=== PATIENT | female | born 1980 | race Caucasian/White ===

== ENCOUNTER 2018-02-19 11:30 | Inpatient (IN) | payer OTHER ==
[2018-02-21] MEDS ORDERED: LACTATED RINGERS 1,000 ML ONE (23:47)
[2018-02-22] MEDS ORDERED: SUBLIMAZE IV PRN (01:10)
[2018-02-22] MEDS ORDERED: POLYCILLIN/NS 2 GM/100 ML 2 GM/100 ML BAG IV ONE (01:10)
[2018-02-22] MEDS ORDERED: BRETHINE SUB-Q PRN (01:10)
[2018-02-22] MEDS ORDERED: XYLOCAINE 2% INFILTRATI ONE (01:10)
[2018-02-22 01:39] LABS: Basophils # (Auto) 0.1 K/mm3 (0.0-0.1); Basophils % (Auto) 0.8 % (0.0-1.8); Eosinophils # (Auto) 0.7 K/mm3 (0.0-0.4); Eosinophils % (Auto) 8.3 % (0.0-4.3); Hematocrit 37.6 % (30.3-42.9); Hemoglobin 12.7 gm/dl (10.1-14.3); Lymphocytes # (Auto) 1.8 K/mm3 (1.2-5.4); Mean Corpuscular HGB Conc 34 % (30-34); Mean Corpuscular Hemoglobin 31 pg (28-32); Mean Corpuscular Volume 93 fl (79-97); Monocytes # (Auto) 0.9 K/mm3 (0.0-0.8); Monocytes % (Auto) 10.4 % (0.0-7.3); Platelet Count 155 K/mm3 (140-440); Red Blood Count 4.05 M/mm3 (3.65-5.03)
--- NOTE | 2018-02-22 01:46 | History and Physical Report ---
History of Present Illness Date of examination: 02/21/18 Date of admission: 02/21/18 21:24 Chief complaint: Patient presents to L&D for induction of labor. History of present illness: 37 year old presents to L&D for induction of labor due to gestational diabetes. Patient has received care at [facility] clinic and she brings a copy of her records with her. LMP 05/22/17. EDC 02/26/18. EGA 39 weeks, 3 days gestation. significant for gestational diabetes (diet controlled), epilepsy ( managed with Lamictal 100 mg po BID, last seizure 2011), AMA (patient declined perinatology consult), fibroid, Rh negative (patient received Rhogam). labs are as follows: A-, antibody screen negative, rubella immune, RPR nonreactive, urine C&S negative, hepatitis B surface antigen negative, HIV negative, chlamydia negative, gonorrhea negative, quad screen negative, 1 hour sugar test 145, 3 hour OGTT 75/162/164/152, GBS positive. Past History Past Medical History: seizure Past Surgical History: other (nasal septum repair 2011) [employer] History: fibroids. denies: abnormal PAP smear, chlamydia, gonorrhea, hepatitis B, hepatitis C, herpes, HIV, syphilis Family/Genetic History: none Social history: , lives with family, full code. denies: smoking, alcohol abuse, prescription drug abuse, IV drug use - Obstetrical History Expected Date of Delivery: 02/26/18 Actual Gestation: 39 Week(s) 3 Day(s) : 4 Para: 2 Hx # Term Pregnancies: 3 Number of Pregnancies: 0 Spontaneous Abortions: 1 Induced : 0 Medications and Allergies Allergies Allergy/AdvReac Type Severity Reaction Status Date / Time No Known Allergies Allergy Verified 02/21/18 22:36 Home Medications Medication Instructions Recorded Confirmed Last Taken Type Vit-Fe Fumar-FA [ 1 tab PO QDAY 02/22/18 02/22/18 1 Day Ago History Vitamin] ~02/21/18 1 tablet lamoTRIgine [LaMICtal] 100 mg PO BID 02/22/18 02/22/18 1 Day Ago History ~02/21/18 100 mg Active Meds: Active Medications Ephedrine Sulfate (Ephedrine Sulfate) 10 mg IV Q2M PRN PRN Reason: Hypotension Fentanyl (Sublimaze) 100 mcg IV Q2H PRN PRN Reason: Labor Pain Ampicillin Sodium (Polycillin/Ns 2 Gm/100 Ml) 2 gm in 100 mls @ 100 mls/hr IV ONCE ONE; Protocol Stop: 02/22/18 02:09 Lactated Ringer's (Lactated Ringers) 1,000 mls @ 125 mls/hr IV DIRECT MARIE Oxytocin/Sodium Chloride (Pitocin/Ns 20 Unit/1000ml Drip) 20 units in 1,000 mls @ 125 mls/hr IV DIRECT MARIE Oxytocin/Sodium Chloride (Pitocin/Ns 30 Unit/500ml) 30 units in 500 mls @ 1 mls /hr IV TITR MARIE; Protocol Ampicillin Sodium (Ampicillin/Ns 1 Gm/50 Ml) 1 gm in 50 mls @ 100 mls/hr IV Q4HR MARIE; Protocol Terbutaline Sulfate (Brethine) 0.25 mg SUB-Q ONCE PRN PRN Reason: Hyperstimulation/Hypertonicity Review of Systems All systems: negative (occasional contraction) - Vital Signs Vital signs: Vital Signs Pulse BP 67 166/83 02/21/18 22:44 02/21/18 22:44 Temp Pulse Resp BP Pulse Ox 98.3 F 68 18 135/84 02/21/18 23:08 02/22/18 01:43 02/21/18 23:08 02/22/18 01:43 - Physical Exam Cardiovascular: Regular rate, Normal S1, Normal S2 Lungs: Positive: Clear to auscultation Abdomen: Positive: normal appearance, soft. Negative: distention, tenderness, guarding, rigidity Genitourinary (Female): Positive: normal external genitalia, normal perenium. Negative: perineal/vulvar lesions Uterus: Positive: enlarged. Negative: tender Anus/Rectum: Positive: normal perianal skin Extremities: Positive: normal. Negative: tenderness, edema - Obstetrical FHR: category 1 Uterine Contraction Monitor Mode: External Cervical Dilatation: 2 Cervical Effacement Percentage: 30 station: -3 Uterine Contraction Pattern: Irregular Uterine Contraction Intensity: Mild Results Result Diagrams: 02/22/18 00:30 Abnormal lab results 02/22/18 Range/Units 00:30 [place] % (Auto) 10.4 H (0.0-7.3) % Eos % (Auto) 8.3 H (0.0-4.3) % [place] # 0.9 H (0.0-0.8) K/mm3 Eos # 0.7 H (0.0-0.4) K/mm3 All other labs normal. Assessment and Plan A: at 39 weeks, 3 days gestation. Gestational diabetes, diet controlled. GBS positive. Seizure disorder, managed on Lamictal. P: Admit. Continuous EFM. GBS prophylaxis. Low dose Pitocin for cervical ripening and induction of labor. Discussed with patient risks and benefits of Pitocin induction of labor. Patient consented to Pitocin ripening and induction of labor.
[2018-02-22 01:59] LABS: Bacteria,Urine 3+ /HPF (Negative); Bilirubin,Urine NEG (Negative); Blood,Urine NEG (Negative); Color,Urine Yellow (Yellow); Hyaline Casts,Urine 1 /LPF; Mucus,Urine FEW /HPF; Protein,Urine <15 mg/dL mg/dL (Negative); Urobilinogen,Urine < 2.0 mg/dL (<2.0)
[2018-02-22] MEDS ORDERED: PITOCin/NS 30 UNIT/500ML 30 UNITS/500 ML BAG IV SCH ×3 (02:00→08:00)
[2018-02-22] MEDS ORDERED: PITOCin/NS 20 UNIT/1000ML DRIP 20 UNITS/1,000 ML BAG IV SCH ×3 (02:00→11:00)
[2018-02-22] MEDS: LACTATED RINGERS 1,000 ML IV SCH ×2 (02:14→09:12)
--- NOTE | 2018-02-22 03:31 | Event Note ---
Date: 02/22/18 Patient is receiving low dose Pitocin for cervical ripening. Patient requests pain medication. SBP elevated, possibly due to pain. Pt. to receive Fentanyl for pain. CMP, LDH, and uric acid results pending. Urinalysis shows only trace protein and platelet count is normal. Pt. denies headache, visual disturbance, swelling, nausea or epigastric pain. Informed Dr. Best re: pt.'s elevated BPs. Plan to start BP medication if pt. has another SBP 160 or above.
[2018-02-22 04:32] LABS: Alanine Aminotransferase 20 units/L (7-56); BUN/Creatinine Ratio 30; Blood Urea Nitrogen 12 mg/dL (7-17); Calcium 8.5 mg/dL (8.4-10.2); Hemolysis Index 75
[2018-02-22] MEDS ORDERED: AMPICILLIN/NS 1 GM/50 ML 1 GM/50 ML BAG IV SCH (05:14)
[2018-02-22] MEDS ORDERED: APRESOLINE IV PRN (08:19)
--- NOTE | 2018-02-22 08:50 | Event Note ---
Date: 02/22/18 Patient complains of water leaking from vagina at 08:35. Moderate amount of clear fluid seen leaking at introitus and clear fluid also seen on pad. SVE 2-3/ 60/-3/posterior. Variable FHR decelerations noted after SROM. Normal FHR baseline rate of 145, moderate variability. A few late FHR decelerations also noted. Position change instituted: left lateral, then right lateral. IV fluid bolus given and Pitocin turned off. Oxygen applied per face mask at 10 LPM. BPs have been labile and pulse has been in 40s and 50s. Consulted with Dr. Javed re : this patient and informed him of all of the above. Dr. Javed recommends section. Informed patient of Dr. Javed's recommendation for section. Patient states she is in agreement with having a section. Nurses and OR team informed of plan to do section.
[2018-02-22] MEDS ORDERED: BICITRA ONE (09:00)
[2018-02-22] MEDS ORDERED: REGLAN ONE (09:00)
[2018-02-22] MEDS ORDERED: PEPCID IV ONE ×2 (09:00→09:04)
[2018-02-22] MEDS ORDERED: ANCEF/STERILE WATER 2 GM/20 ML 2 GM/20 ML SYRINGE IV ONE (09:01)
[2018-02-22] MEDS ORDERED: REGLAN IV ONE (09:04)
[2018-02-22] MEDS ORDERED: BICITRA PO ONE (09:04)
[2018-02-22] MEDS ORDERED: WATER FOR IRRIG STERILE IR ONE (09:50)
[2018-02-22] MEDS ORDERED: NACL 0.9% IR ONE (09:50)
[2018-02-22] MEDS ORDERED: ANCEF/STERILE WATER 2 GM/20 ML 2 GM/20 ML SYRINGE IV NR (10:00)
[2018-02-22] MEDS ORDERED: LACTATED RINGERS 1,000 ML IV SCH (10:00)
[2018-02-22] MEDS ORDERED: ZOFRAN ONE (10:05)
[2018-02-22] MEDS ORDERED: DECADRON ONE (10:06)
[2018-02-22] MEDS ORDERED: TORADOL ONE (10:18)
[2018-02-22] MEDS ORDERED: NEO SYNEPHRINE/NS Syringe(OR USE) IV ONE (10:21)
[2018-02-22] MEDS ORDERED: ASTRAMORPH PF 10MG/10ML ONE (10:26)
[2018-02-22] MEDS ORDERED: MILK OF MAGNESIA PO PRN (10:34)
[2018-02-22] MEDS ORDERED: TORADOL IV PRN (10:34)
[2018-02-22] MEDS ORDERED: NORCO 5/325 PO PRN (10:34)
[2018-02-22] MEDS ORDERED: TYLENOL PO PRN (10:34)
[2018-02-22] MEDS ORDERED: TUCKS PAD TP PRN (10:34)
[2018-02-22] MEDS ORDERED: SENOKOT PO PRN (10:34)
[2018-02-22] MEDS ORDERED: LANSINOH TP PRN (10:34)
[2018-02-22] MEDS ORDERED: PHENERGAN PR PRN ×2 (10:34→10:48)
[2018-02-22] MEDS ORDERED: ZOFRAN IV PRN ×2 (10:34→10:48)
[2018-02-22] MEDS ORDERED: MYLICON PO PRN (10:34)
[2018-02-22] MEDS ORDERED: PERCOCET 5/325 PO PRN (10:34)
[2018-02-22] MEDS ORDERED: PHENERGAN PO PRN (10:48)
[2018-02-22] MEDS ORDERED: NARCAN 0.4 MG/1 ML IV PRN ×2 (10:48→12:00)
[2018-02-22] MEDS ORDERED: DILAUDID IV PRN ×2 (10:48)
--- NOTE | 2018-02-22 10:49 | Operative Report ---
Operative Report Operative Report: Date of procedure: 02/22/2018 Pre-operative diagnosis: 1. Intrauterine at 39-4/7 weeks 2. Non- reassuring surveillance 3. History of epilepsy 4. Advanced maternal age 5. Gestational diabetes mellitus - diet controlled 6. Uterine fibroids Post-operative diagnosis: Same Procedure name(s): Primary low transverse section Surgeon: Nj Javed MD Audio Engineer: None Anesthesia: Spinal anesthesia by Dr. Love EBL: 800 mL Findings: A 3370 g male Apgars 8 at 1 minute and 9 at 5 minutes. 1+ meconium fluid. Fibroid uterus. Normal tubes and ovaries bilaterally. Procedure: After the patient was prepped and draped in usual sterile fashion, and after satisfactory level of epidural anesthesia was obtained, the skin knife was used to make a transverse skin incision. The incision was excised down to layer of the fascia, which was nicked in the midline and extended laterally using the Bovie cautery. The rectus muscles were dissected off the rectus fascia both superiorly and inferiorly. The rectus bellies in the midline, and the peritoneum was entered under direct visualization. The peritoneal incision was extended superiorly and inferiorly. A bladder flap was created and the bladder blade was then placed. The uterus was scored in a curvilinear linear fashion, entered in the midline revealing meconium amniotic fluid. The infant's head was delivered onto the surgical field, and the oropharynx and nasopharynx were bulb suctioned. The rest of the infant's body was delivered, cord was doubly clamped and cut and the infant was handed to the waiting respiratory team. Cord blood was then obtained. The placenta was manually removed from the uterus, and the uterus removed from its normal anatomical position. The uterus had small posterior fibroids. After gentle uterine lavage, the incision was inspected and found to be without extensions. It was then closed in 2 layers using 0 Vicryl suture in a running interlocking fashion, the second layer imbricating the first. After good hemostasis was achieved, copious amounts or irrigation was performed, and the gutters were suctioned free of blood and blood clots. Tisseel sealant was sprayed across the uterine incision. The uterus was then returned to its normal anatomical position, and after excellent hemostasis assured, the peritoneum was re- approximated using 3-0 Vicryl suture in a running interlocking fashion, and then the rectus muscles were re-approximated using 3-0 Vicryl suture in a figure -of-eight configuration. The fascia was then re-approximated using 0 Vicryl suture in running interlocking fashion. The subcutaneous layer was made hemostatic using Bovie cautery, the Tisseel sealant was sprayed across the fascial incision and the skin edges re-approximated using 4-0 Vicryl suture in a sub-cuticular fashion. Patient tolerated the procedure well was transported to recovery in stable condition.
--- NOTE | 2018-02-22 10:51 | Anesthesia Consultation ---
Anesthesia Consult and Med Hx Date of service: 02/22/18 - Airway Anesthetic Teeth Evaluation: Good ROM Head & Neck: Adequate Mental/Hyoid Distance: Adequate Mallampati Class: Class II Intubation Access Assessment: Probably Good - Pulmonary Exam CTA: Yes - Cardiac Exam Cardiac Exam: RRR - Pre-Operative Health Status ASA Pre-Surgery Classification: ASA3, Emergency Proposed Anesthetic Plan: Epidural, Spinal - Pre-Anesthesia Comment Pre-Anesthesia Comments: Nonreassuring heart tones and maternal HTN - Pulmonary Hx Asthma: No COPD: No Hx Pneumonia: No - Cardiovascular System Hx Hypertension: No - Central Nervous System Hx Seizures: Yes (Epilepsy) Hx Psychiatric Problems: No - Endocrine Hx Renal Disease: No Hx End Stage Renal Disease: No Hx Hypothyroidism: No Hx Hyperthyroidism: No - Hematic Hx Anemia: No Hx Sickle Cell Disease: No - Other Systems Hx Alcohol Use: No
--- NOTE | 2018-02-22 10:51 | Anesthesia Day of Surgery ---
Anesthesia Day of Surgery - Day of Surgery Patient Examined: Yes Patient H&P Reviewed: Yes Patient is NPO: Yes
[2018-02-22] MEDS ORDERED: SODIUM CHLORIDE FLUSH SYRINGE 10 ML IV NR ×2 (11:00)
[2018-02-22] MEDS ORDERED: D5LR 1,000 ML IV SCH (11:00)
--- NOTE | 2018-02-22 16:26 | Post Anesthesia Evaluation ---
- Post Anesthesia Evaluation Patient Participated: Yes Airway Patent: Yes Stable Respiratory Function: Yes Nausea/Vomiting: No Temp > 96.8F: Yes Pain Manageable: Yes Adequeate Hydration: Yes Anesthesia Complications: No Block Receding Appropriately: Yes Patient on Ventilator: No
[2018-02-22] MEDS: ANCEF/NS 1 GM/50 ML 1 GM/50 ML BAG IV SCH (18:07)
[2018-02-23] MEDS: LaMICtal PO SCH ×3 (00:22→22:30)
[2018-02-23] MEDS: NORMODYNE PO SCH ×3 (00:41→22:29)
[2018-02-23] MEDS: ANCEF/NS 1 GM/50 ML 1 GM/50 ML BAG IV SCH (01:40)
[2018-02-23] MEDS ORDERED: BOOSTRIX IM ONE ×2 (06:00→10:36)
[2018-02-23] MEDS: FEOSOL PO SCH (10:14)
[2018-02-23] MEDS: MOTRIN PO PRN ×2 (10:14→22:31)
[2018-02-23] MEDS: PRENATAL VITAMIN PO SCH (10:14)
--- NOTE | 2018-02-23 10:18 | Progress Note ---
Assessment and Plan A: /postop day 1 S/P primary low transverse section. P: Encouraged patient to ambulate today. Increase diet as tolerated. Subjective - Subjective Date of service: 02/23/18 Principal diagnosis: /postop day 1 S/P primary LTCS Interval history: /postop day 1 S/P primary LTCS. Doing well. Patient is voiding without difficulty; Diaz catheter has been removed. She is ambulating well. She is tolerating clear liquid diet without nausea or vomiting. Has not passed gas yet. Patient denies headache, chest pain, cough, shortness of breath, abdominal pain , leg pain, or heavy vaginal bleeding. Patient reports: appetite normal, voiding normally, pain well controlled, ambulating normally, no flatus : doing well Objective - Vital Signs Latest vital signs: Vital Signs Temp Pulse Resp BP BP Pulse Ox 02/23/18 04:10 98.4 F 64 18 114/70 02/23/18 00:41 48 L 119/56 02/23/18 00:29 20 02/23/18 00:00 98.4 F 57 L 18 119/56 02/22/18 20:05 98.2 F 45 L 18 144/64 02/22/18 12:32 97.9 F 45 L 18 124/63 97 02/22/18 11:54 97.7 F 02/22/18 11:45 52 L 14 130/63 98 02/22/18 11:40 44 L 12 132/73 99 02/22/18 11:35 44 L 12 134/66 99 02/22/18 11:30 44 L 12 137/66 99 02/22/18 11:25 43 L 12 131/63 99 02/22/18 11:20 44 L 12 136/62 99 02/22/18 11:15 45 L 13 122/62 99 02/22/18 11:10 46 L 13 132/64 99 02/22/18 11:05 50 L 13 129/61 99 02/22/18 11:00 49 L 13 123/62 99 02/22/18 10:55 49 L 14 119/67 99 02/22/18 10:50 50 L 14 121/61 99 02/22/18 10:45 97.6 F 51 L 14 115/73 99 Intake and Output 02/22/18 02/23/18 02/23/18 23:59 07:59 15:59 Intake Total 290 Output Total 1000 Balance -710 Intake: IV 50 ANCEF/NS 1 GM/50 ML 1 gm 50 In 50 ml @ 100 mls/hr IV Q8H [facility] Rx#:[id number] Oral 240 Output: Urine 1000 Indwelling Catheter 1000 Other: Total, Intake Amount 240 Total, Output Amount 200 - Exam Cardiovascular: Present: Regular rate, Normal S1, Normal S2 Lungs: Present: Clear to auscultation Abdomen: Present: normal appearance, soft, normal bowel sounds. Absent: distention, tenderness, rigidity Uterus: Present: normal, firm, fundal height below umbilicus. Absent: bogginess , tenderness Extremities: Present: normal, edema (mild pedal edema bilaterally). Absent: tenderness Incision: Present: normal, dry, intact, dressed - Labs Labs: Abnormal lab results 02/22/18 02/23/18 Range/Units 21:55 08:46 POC Glucose 120 H 59 L (70-105)
[2018-02-23] MEDS ORDERED: M-M-R II VACCINE SUB-Q ONE (10:36)
[2018-02-23] MEDS ORDERED: AFLURIA QUAD 2018-2019 SYRINGE IM ONE (12:00)
[2018-02-24] MEDS: MOTRIN PO PRN ×2 (05:17→10:45)
[2018-02-24] MEDS: FEOSOL PO SCH (10:45)
[2018-02-24] MEDS: PRENATAL VITAMIN PO SCH (10:49)
[2018-02-24] MEDS: LaMICtal PO SCH (10:49)
[2018-02-24] MEDS: NORMODYNE PO SCH (10:50)
--- NOTE | 2018-02-24 10:53 | Progress Note ---
Assessment and Plan - Patient Problems (1) S/P primary low transverse Current Visit: Yes Status: Acute Plan to address problem: POD #2 - stable Discharge to home today Follow up at [facility] in 1 week for incision check (2) Gestational diabetes mellitus Current Visit: Yes Status: Acute Qualifiers: Trimester: third trimester Plan to address problem: Blood sugars stable Continue ADA diet Subjective - Subjective Date of service: 02/24/18 Principal diagnosis: POD day #2; S/P primary LTCS Patient reports: appetite normal, voiding normally, dizzy ambulation, pain well controlled, flatus, ambulating normally, no bowel movement : doing well Objective - Vital Signs Latest vital signs: Vital Signs Temp Pulse Resp BP BP 02/24/18 08:02 98.3 F 63 18 136/60 02/24/18 04:00 98.7 F 63 18 132/60 02/24/18 01:05 98.8 F 83 20 115/62 02/23/18 22:29 72 137/69 02/23/18 22:25 98.7 F 72 18 137/69 02/23/18 16:50 98 F 62 18 132/70 Intake and Output 02/23/18 02/24/18 02/24/18 23:59 07:59 15:59 Intake Total 120 360 120 Output Total 900 Balance -780 360 120 Intake: Oral 120 120 Intake, Free Water 360 Output: Urine 900 Void 900 Other: Total, Intake Amount 120 120 Total, Output Amount 900 # Voids Void 3 2 1 - Exam Abdomen: Present: normal appearance, soft Vulva: both: normal Uterus: Present: normal, firm, fundal height below umbilicus Extremities: Present: normal Incision: Present: normal, dry, intact
--- NOTE | 2018-02-24 10:57 | Discharge Summary ---
Providers - Providers Date of Admission: 02/21/18 21:24 Date of discharge: 02/24/18 Attending physician: JANEE FOREMAN MD Primary care physician: JANEE FOREMAN MD Hospitalization Reason for admission: induction of labor, IUP at term Delivery: Procedure: primary low transverse Episiotomy: none Laceration: none Incision: normal, dry, intact Other procedures: none complications: none Discharge diagnosis: IUP at term delivered baby: male Hospital course: Uncomplicated Condition at discharge: Stable Disposition: [place]-[id number] TO HOME OR SELFCARE - Discharge Diagnoses (1) S/P primary low transverse Status: Acute (2) Gestational diabetes mellitus Status: Acute Qualifiers: Trimester: third trimester Plan - Discharge Medications Prescriptions: Ferrous Sulfate [Feosol 325 MG tab] 325 mg PO BID #60 tablet HYDROcodone/APAP 5-325 [[place] 5/325] 1 each PO Q6HR PRN #30 tablet PRN Reason: Pain Ibuprofen [Motrin] 800 mg PO Q8HR PRN #30 tablet PRN Reason: Moder Pain Unrelieved By [place] Vit Calc,Iron,Folic [ Vitamins] 1 each PO DAILY #30 tablet - Provider Discharge Summary Activity: routine, no sex for 6 weeks, no heavy lifting 4 weeks, no strenuous exercise Diet: routine Instructions: routine Additional instructions: [] Smoking cessation referral if applicable(refer to patient education folder for contact #) [] Refer to [facility]'s [facility] Booklet Call your doctor immediately for: * Fever > 100.5 * Heavy vaginal bleeding ( >1 pad per hour) * Severe persistent headache * Shortness of breath * Reddened, hot, painful area to leg or breast * Drainage or odor from incision. * Keep incision clean and dry at all times and follow doctor's instructions regarding bathing/showering - Follow up plan Follow up: JANEE FOREMAN MD [Primary Care Provider] - 7 Days (Follow up at [facility] in 1 week for incision check)
[2018-02-24 14:26] VITALS: BP 138/83
== END 2018-02-24 14:30 | disposition home or self-care (01) | DRG 765 ==
LOC: LD 02-21 21:24 → OB 02-22 12:22
PROVIDERS: ADMIT Obstetrics & Gynecology; ATTEND Obstetrics & Gynecology
PROC: 10D00Z1 Extraction of Products of Conception, Low, Open Approach (ICD-10-PCS; principal; 2018-02-22)
PROC: 3E0234Z Introduction of Serum, Toxoid and Vaccine into Muscle, Percutaneous Approach (ICD-10-PCS; 2018-02-23)
DX: O24.420 Gestational diabetes mellitus in childbirth, diet controlled (principal); O99.354 Diseases of the nervous system complicating childbirth; G40.909 Epilepsy, unspecified, not intractable, without status epilepticus; O99.824 Streptococcus B carrier state complicating childbirth; O77.0 Labor and delivery complicated by meconium in amniotic fluid; O76 Abnormality in fetal heart rate and rhythm complicating labor and delivery; D25.9 Leiomyoma of uterus, unspecified; O34.13 Maternal care for benign tumor of corpus uteri, third trimester; Z3A.39 39 weeks gestation of pregnancy; Z37.0 Single live birth; Z23 Encounter for immunization
CPT/HCPCS: 36415; 80053; 81001; 82962; 83615; 84550; 85014; 85018; 85025; 86850; 86900; 86901; 87086; 90471; 90686; 99211; C9250; G0463; J0290; J0690; J1100; J1885; J2274; J2370; J2405; J2590; J2765; J3010; J7120; J7121